=== PATIENT | male | born 1975 | race African-American/Black ===

== ENCOUNTER 2017-06-30 01:56 | Emergency (ER) | payer SELFPAY ==
[~2017-06-30] VITALS: Ht 198.1 cm; Wt 117.9 kg
[2017-06-30 02:00] VITALS: BP 134/81
[2017-06-30] MEDS ORDERED: CEPHALEXIN MONOHYDRATE 500 MG CAPSULE PO ONE ×2 (04:00→04:08)
[2017-06-30] MEDS ORDERED: SULFAMETH/TRIMETH 800/160 MG 1 UDTAB TABLET PO ONE ×2 (04:00→04:08)
== END 2017-06-30 04:38 | disposition home or self-care (01) ==
LOC: ER 01:57
DX: I80.9 Phlebitis and thrombophlebitis of unspecified site (principal)
CPT/HCPCS: 99283; A4606; Z7610

== ENCOUNTER 2018-12-13 00:53 | Emergency (ER) | payer MEDICAID ==
[~2018-12-13] VITALS: Ht 198.1 cm; Wt 113.4 kg
--- NOTE | 2018-12-13 02:45 | NUR ---
Pt BIBSELF FROM HOME C/O R HAND WOUND FROM HEROIN USE. C/O ITCHINESS, REDNESS, BURNING & SWELLING. -DRAINAGE. -N/V. -DIZZINESS. -SOB. Pt IS A/OX4, VERBAL, ABLE TO COMMUNICATE AND ANSWER QUESTIONS. Pt IS IN BED, ALREADY SEEN BY MD AT BEDSIDE. WILL CONTINUE TO MONITOR Pt.
--- NOTE | 2018-12-13 03:05 | NUR ---
Patient discharged to home in stable condition. Written and verbal after care instructions given. Patient verbalizes understanding of instruction. Patient left facility on foot with steady gait. No s/s of acute distress or sob noted. No iv access on pt.
[2018-12-13 03:24] VITALS: BP 140/80
== END 2018-12-13 03:26 | disposition home or self-care (01) ==
LOC: ER 00:53
DX: L40.9 Psoriasis, unspecified (principal); L98.499 Non-pressure chronic ulcer of skin of other sites with unspecified severity; F15.10 Other stimulant abuse, uncomplicated; F11.10 Opioid abuse, uncomplicated; F17.210 Nicotine dependence, cigarettes, uncomplicated; Z86.19 Personal history of other infectious and parasitic diseases
CPT/HCPCS: 99283; A4606